=== PATIENT | female | born 1960 | race Caucasian/White ===

== ENCOUNTER → 2021-05-26 | Outpatient (CLI) | payer OTHER ==
[~2021-05-26] MED LIST: ASPIRIN EC81 MG PO; CRESTOR 10 MG T10 MG PO; CYCLOBENZAPRINE10 MG PO; CYMBALTA60 MG PO; CYTOMEL 25 MCG25 MCG PO; HYDROCODON-ACE1 EAC2 PO; IMURAN TAB 50 M50 MG PO; IMURAN50 MG PO; LEVOTHYROXINE112 MCG PO; OMEPRAZOLE20 MG PO; PLAQUENIL200 MG PO; SULINDAC200 MG PO; TYLENOL EXTRA500 MG PO; TYLENOL PM EX-1 EACH PO; ZYRTEC10 MG PO
[2021-05-26 14:40] LABS: BUN/CREATININE RATIO 23 (0-10)
== END ==
LOC: LAB 12:53
PROVIDERS: Orthopaedic Surgery
DX: Z01.812 Encounter for preprocedural laboratory examination (principal); M17.11 Unilateral primary osteoarthritis, right knee
CPT/HCPCS: 36415; 80048; 86850; 86900; 86901